=== PATIENT | male | born 1990 | race Caucasian/White ===

== ENCOUNTER 2019-01-20 12:10 | Outpatient (REF) | payer MEDICAID, SELFPAY ==
[2019-01-20 22:10] LABS: TSH (W/Ref FT4) 1.26 uIU/mL (0.358-3.74)
== END 2019-01-20 12:30 ==
LOC: NCHCN 12:10
PROVIDERS: PCP Family Medicine; Visit Provider Family Medicine
DX: E03.9 Hypothyroidism, unspecified (principal)
CPT/HCPCS: 84443

== ENCOUNTER 2020-03-20 09:54 | Outpatient (REF) | payer SELFPAY ==
[2020-03-20 21:00] LABS: TSH (W/Ref FT4) 1.54 uIU/mL (0.36-3.74)
== END 2020-03-20 10:14 ==
LOC: NCHCN 09:54
PROVIDERS: PCP Family Medicine; Visit Provider Family Medicine
DX: E03.9 Hypothyroidism, unspecified (principal)
CPT/HCPCS: 84443

== ENCOUNTER 2020-06-19 21:25 | Outpatient (REF) | payer BC, SELFPAY ==
[2020-06-21 12:23] LABS: COVID-19 RT-PCR Result NEGATIVE (Negative)
== END 2020-06-19 21:45 ==
LOC: NCHCN 21:25
PROVIDERS: PCP Family Medicine; Visit Provider Family Medicine
DX: Z20.828 Contact with and (suspected) exposure to other viral communicable diseases (principal)
CPT/HCPCS: U0003

== ENCOUNTER 2020-08-03 19:17 | Outpatient (REF) | payer BC, SELFPAY ==
[2020-08-03 21:13] LABS: Abs Immature Grans 0.02 10^3/uL (0.0-0.06); Absolute Basophil Count 0.03 10^3/uL (0.0-0.2); Absolute Eosinophil Count 0.04 10^3/uL (0.0-0.7); Absolute Lymphocyte Count 0.79 10^3/uL (1.2-3.4); Absolute Monocyte Count 0.68 10^3/uL (0.1-0.8); Absolute Neutrophil Count 3.49 10^3/uL (1.2-6.7); Basophils % 0.6; Eosinophils % 0.8; HCT 47.5 % (40.0-50.0); HGB 16.1 g/dL (13.5-17.5); Immature Grans % 0.4; Lymphocytes % 15.6; MCH 30.8 pg (27.0-33.0); MCHC 33.9 % (32.0-36.0); MCV 90.8 fL (80-95); MPV 11.7 fL (8.0-11.0); Monocytes % 13.5; Neutrophils % 69.1; Nucleated RBC 0 %; Platelet Count 186 10^3/uL (130-400); RBC 5.23 10^6/uL (4.36-5.78); RDW 12.5 % (11.8-14.1); RDW-SD 41.3 fL; WBC 5.05 10^3/uL (4.4-10.8)
[2020-08-03 21:51] LABS: ESR 4 mm/hr (0-15)
[2020-08-03 21:55] LABS: ALT 66 U/L (16-63); AST 25 U/L (15-37); Albumin 4.2 g/dL (3.4-5.0); Alkaline Phosphatase 78 U/L (46-116); Anion Gap 10.2 mmol/L (3-11); BUN 11 mg/dL (7-18); Bilirubin, Total 0.7 mg/dL (0.2-1.0); CO2 26.8 mmol/L (21.0-32.0); CREATININE 1.07 mg/dL (0.70-1.30); Calculated LDL 67 mg/dL (<100); Chloride 107 mmol/L (98-107); Cholesterol 125 mg/dL (<200); Glucose 129 mg/dL (74-106); HDL Cholesterol 36 mg/dL (40-60); Potassium 3.8 mmol/L (3.5-5.1); Sodium 144 mmol/L (136-145); Total Protein 7.1 g/dL (6.4-8.2); Triglyceride 112 mg/dL (<150)
[2020-08-03 22:11] LABS: Calcium 8.9 mg/dL (8.5-10.1)
[2020-08-07 12:06] LABS: Lyme Ab w Rflx to Lyme Confirm Negative (Negative)
[2020-08-07 15:53] LABS: Anaplasma phagocytophilum Negative (Negative); B. miyamotoi PCR Negative (Negative); Babesia divergens/MO-1 Negative (Negative); Babesia duncani Negative (Negative); Babesia microti Negative (Negative); Ehrlichia chaffeensis Negative (Negative); Ehrlichia ewingii/canis Negative (Negative); Ehrlichia muris eauclairensis Negative (Negative)
== END 2020-08-03 19:37 ==
LOC: NCHCN 19:17
PROVIDERS: PCP Family Medicine; Visit Provider Family Medicine
DX: R53.83 Other fatigue (principal); M25.50 Pain in unspecified joint; R19.7 Diarrhea, unspecified
CPT/HCPCS: 80053; 80061; 85652; 87798; 83735; 85025; 86618

== ENCOUNTER 2020-08-31 09:42 | Outpatient (CLI) | payer BC, SELFPAY ==
--- NOTE | 2020-08-31 09:15 | DI.RAD_ITS ---
EXAM: XR ELBOW LT COMPLETE CLINICAL HISTORY: s/p ORIF left elbow. TECHNIQUE: 2D digital imaging was performed. COMPARISON: CR LEFT FOREARM from 05/09/2017 CR LEFT HUMERUS from 05/09/2017 FINDINGS: BONES: There are sideplate and screws seen in the distal humerus. Two percutaneous pins are seen in the proximal ulna. The orthopedic hardware is intact. No fracture or dislocation is seen. JOINTS: The joint spaces are well maintained. No joint effusion is present. SOFT TISSUE: Normal. IMPRESSION: Stable postoperative changes. DATA REPOSITORY: RADIATION DOSE DELIVERED:
== END 2020-08-31 10:02 ==
PROVIDERS: PCP Family Medicine; Referring Provider Family Medicine; Visit Provider Physician Assistant
DX: M25.522 Pain in left elbow (principal); Z96.7 Presence of other bone and tendon implants; Z87.81 Personal history of (healed) traumatic fracture
CPT/HCPCS: 73080

== ENCOUNTER 2020-10-27 01:43 | Outpatient (CLI) | payer BC, SELFPAY ==
[2020-10-28 15:32] LABS: COVID-19 RT-PCR UVMMC Result Negative (Negative)
== END 2020-10-27 02:03 ==
PROVIDERS: PCP Family Medicine; Visit Provider Student in an Organized Health Care Education/Training Program
DX: Z11.52 Encounter for screening for COVID-19 (principal); Z01.818 Encounter for other preprocedural examination
CPT/HCPCS: U0003

== ENCOUNTER 2020-10-31 08:06 | Day surgery (SDC) | payer BC, SELFPAY ==
--- NOTE | 2020-10-26 09:15 | NUR.NOTE ---
Patient called for pre-op instructions and time. Patient stated he wasn't aware that he had to have a COVID test prior to his procedure, this RN informed him that in order to have his surgery he need to have to COVID test and quarantine per the guidelines. Pt. stated that he was never told he had to have a COVID test or quarantine, this RN asked if he received a folder from the office and if he reviewed the information within it, pt. stated well ,no. This RN stated all of that information would in in that folder (verified this with Ortho office). Verified with MD and anesthesia that pt. would have to be in Full quarantine after COVID test (stay home not to go work or store) until after his surgery. Patient educated on this information, Pt. stated understanding and that he will review information in given folder. Nursing Note:
[2020-10-31] VITALS (8 sets, daily range): BP systolic 83–113; BP diastolic 43–78; PULSE 65–95; RESP 11–17; TEMP 36.2–36.7; O2SAT 94–99
--- NOTE | 2020-10-31 07:59 | W.PM.DSUDISC ---
Documented by User: MARQUITA Smith 10/31/20 08:16 Discharge Plan Disposition Patient Disposition: HOME Condition: Good Discharge Details Reason For Visit: Hardware Removal Attending Provider: Justin Sumner Primary Care Provider: Inocencia Douglass Home Meds and New Rx's Prescriptions: New hydrocodone-acetaminophen 5-325 mg tablet 1 tab PO Q6H PRNQty: 5 RF: 0 Continued levothyroxine 75 MCG tablet 75 mcg PO DAILY Qty: 90 RF: 3 ibuprofen 600 MG tablet 600 mg PO Q6H PRN PRNQty: 30 RF: 0 acetaminophen [Tylenol] 325 MG tablet 650 mg PO Q6H PRN PRNQty: 30 RF: 0 fluoxetine 20 mg capsule 20 mg PO DAILY RF: 0 Discharge Instructions Additional Instructions: Activity: You should use the sling for comfort for the first 2 weeks. You may come out of the sling for gentle motion and hygiene. Gentle motion of the elbow, hand, wrist, and fingers is okay and encouraged after the first few days, but no repetitive activites nor heavy lifting. You may apply ice. Medications: - You should take Tylenol and Ibuprofen around the clock. - You have been prescribed Hydrocodone for breakthrough pain. Dressings: - The initial surgical dressing should stay in place for 3 days. It may then be removed and kept clean and dry. You should cover with a light gauze dressing. - You may shower after 3 days and get the wound wet. Follow-up: 10 days Referrals: Justin Sumner MD [ [facility] STAFF PHYSICIAN] - Equipment/Supplies: Splint Activity:: Activity as Tolerated Remove Dressings/Wound Care:: 72 hours Shower/Bathe:: 72 hours Diet:: As Tolerated Discharge Orders Discharge Orders: Discharge Order (Routine); Ordered 10/31/20 Ordered By: Sommer Chahal DS: Diagnosis Discharge Diagnosis (1) Painful orthopaedic hardware: Status: Acute Documented by User: Justin Sumner MD 10/31/20 11:08 Discharge Plan Disposition Patient Disposition: HOME Condition: Good Discharge Details Reason For Visit: Hardware Removal Attending Provider: Justin Sumner Primary Care Provider: Inocencia Douglass Home Meds and New Rx's Prescriptions: New hydrocodone-acetaminophen 5-325 mg tablet 1 tab PO Q6H PRNQty: 5 RF: 0 Continued levothyroxine 75 MCG tablet 75 mcg PO DAILY Qty: 90 RF: 3 ibuprofen 600 MG tablet 600 mg PO Q6H PRN PRNQty: 30 RF: 0 acetaminophen [Tylenol] 325 MG tablet 650 mg PO Q6H PRN PRNQty: 30 RF: 0 fluoxetine 20 mg capsule 20 mg PO DAILY RF: 0 Discharge Instructions Additional Instructions: Activity: You should use the sling for comfort for the first 2 weeks. You may come out of the sling for gentle motion and hygiene. Gentle motion of the elbow, hand, wrist, and fingers is okay and encouraged after the first few days, but no repetitive activites nor heavy lifting. You may apply ice. Medications: - You should take Tylenol and Ibuprofen around the clock. - You have been prescribed Hydrocodone for breakthrough pain. Dressings: - The initial surgical dressing should stay in place for 3 days. It may then be removed and kept clean and dry. You should cover with a light gauze dressing. - You may shower after 3 days and get the wound wet. Follow-up: 10 days Referrals: Justin Sumner MD [ [facility] STAFF PHYSICIAN] - Equipment/Supplies: Splint Activity:: Activity as Tolerated Remove Dressings/Wound Care:: 72 hours Shower/Bathe:: 72 hours Diet:: As Tolerated Discharge Orders Discharge Orders: Discharge Order (Routine); Ordered 10/31/20 Ordered By: Sommer Chahal
[2020-10-31] MEDS: Lactated Ringers 1,000 ML 80 ML IV (08:50)
--- NOTE | 2020-10-31 09:56 | W.PREOPHP ---
Date of service: 10/31/20 Time of Service: 09:57 Assessment and Plan Assessment and plan (1) Painful orthopaedic hardware: Status: Acute Assessment and plan: Miko is a 29-year-old who has previous hardware from a complex elbow fracture. My suspicion is that the hardware is causing some the pain that he has. However, there is a chance that it is not and is related to the overall trauma he experienced. However, removing the hardware is of little difficulty and therefore I recommend that we remove the hardware to remove this possible pain generator. I reviewed the risk of the procedure to include bleeding, infection, continued symptoms, pain, stiffness, damage to nerves and vessels, wound healing complications. Despite these risk, he elects to proceed. History of Present Illness History of Present Illness Chief Complaint: Painful Left Elbow Hardware Narrative: Miko is a 29-year-old who I saw previously in the office for continued left proximal forearm pain, mostly with rotation but also with some elbow flexion. He does not around the hardware of the left elbow. However, he is status post open reduction internal fixation of a complex distal humerus fracture using a chevron osteotomy of the proximal ulna. Through examination and discussion we felt that the hardware of the proximal ulna was causing pain and therefore desired to proceed with hardware removal of the left elbow. Review of Systems All systems reviewed & are unremarkable except as noted in HPI and below PFSH Medical History History of fracture of tibia LLE Hx of fracture of fibula LLE Surgical History History of skin graft x 3 RLE Hx of cholecystectomy Hx of elbow surgery L Social History Smoking/Tobacco Use Status: Never Smoking risk assessment performed?: Yes Alcohol Intake: current Alcohol Intake frequency: a few times a month Drug use: Never Substance use type: does not use Do you feel safe at home: Yes Meds Home Medications and Allergies Home Medications Medication Instructions Recorded Confirmed Type levothyroxine 75 mcg PO DAILY #90 tab-cap 09/20/14 10/31/20 History acetaminophen [Tylenol] 650 mg PO Q6H PRN PRN #30 tab 02/12/18 10/31/20 Rx ibuprofen 600 mg PO Q6H PRN PRN #30 tablet 02/12/18 10/31/20 Rx fluoxetine 20 mg PO DAILY 10/26/20 10/31/20 History hydrocodone-acetaminophen 1 tab PO Q6H PRN #5 tab 10/31/20 Rx Allergies Allergy/AdvReac Type Severity Reaction Status Date / Time cefaclor [From [facility]] Allergy Unknown Skin Rash Unverified 10/31/20 08:35 hydromorphone Allergy Itching Unverified 10/31/20 08:35 Exam Const General: cooperative, healthy appearing and comfortable Nutritional Appearance: average body habitus Orientation: alert, awake and oriented x3 Resp Effort & Inspection: normal respiratory effort Auscultation: clear to auscultation bilaterally Cardio Rate: tachycardic Rhythm: regular rhythm Results Last Vital Signs Temp 36.3 C L 10/31/20 08:15 Pulse 95 H 10/31/20 08:15 Resp 17 10/31/20 08:15 BP 113/78 10/31/20 08:15 Pulse Ox 97 10/31/20 08:15
[2020-10-31] MEDS: ceFAZolin 2 GM/50 ML BAG IVPB (09:59)
[2020-10-31] MEDS: Bupivacaine 0.5% Pres-Free 30 ML VIAL (10:32)
[2020-10-31] MEDS: EPINEPHrine 1 MG/ML AMP pres-free (10:34)
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
== END 2020-10-31 13:08 | disposition home or self-care (01) ==
LOC: SUR 08:07
PROVIDERS: PCP Family Medicine; Visit Provider Student in an Organized Health Care Education/Training Program
PROC: (CPT 20680; principal; 2020-10-31 10:15)
DX: T84.84XA Pain due to internal orthopedic prosthetic devices, implants and grafts, initial encounter (principal); M25.522 Pain in left elbow; M79.632 Pain in left forearm; K21.9 Gastro-esophageal reflux disease without esophagitis
CPT/HCPCS: 20680; J0171; J0690; J1885; J2250; J2405; J2704; L3650

== ENCOUNTER 2022-03-29 19:05 | Outpatient (REF) | payer BC, SELFPAY ==
[2022-03-29 14:59] LABS: ALT 30 U/L (16-63); AST 12 U/L (15-37); Albumin 4.4 g/dL (3.4-5.0); Alkaline Phosphatase 87 U/L (46-116); Anion Gap 11.7 mmol/L (3-11); BUN 16 mg/dL (7-18); Bilirubin, Total 0.5 mg/dL (0.2-1.0); CO2 25.3 mmol/L (21.0-32.0); Calculated LDL 88 mg/dL (<100); Chloride 105 mmol/L (98-107); Cholesterol 142 mg/dL (<200); Glucose 99 mg/dL (74-106); HDL Cholesterol 43 mg/dL (40-60); Sodium 142 mmol/L (136-145); TSH (W/Ref FT4) 1.36 uIU/mL (0.36-3.74); Total Protein 7.5 g/dL (6.4-8.2); Triglyceride 59 mg/dL (<150)
[2022-03-29 16:47] LABS: Hemoglobin A1C 5.2 % (<5.7)
== END 2022-03-29 19:06 | disposition home or self-care (01) ==
LOC: NCHCN 19:05
PROVIDERS: PCP Family Medicine; Visit Provider Family Medicine
DX: Z00.00 Encounter for general adult medical examination without abnormal findings (principal); E03.9 Hypothyroidism, unspecified; Z13.1 Encounter for screening for diabetes mellitus; Z13.220 Encounter for screening for lipoid disorders
CPT/HCPCS: 80053; 80061; 83036; 84443

== ENCOUNTER 2023-01-02 16:01 | Outpatient (REF) | payer BC, SELFPAY ==
[2023-01-02 14:19] LABS: HCT 45.8 % (40.0-50.0); HGB 15.4 g/dL (13.5-17.5); MCH 30.3 pg (27.0-33.0); MCHC 33.6 % (32.0-36.0); MCV 90 fL (80-95); MPV 10.5 fL (8.0-11.0); Platelet Count 203 10^3/uL (130-400); RBC 5.09 10^6/uL (4.36-5.78); RDW 12.6 % (11.8-14.1); RDW-SD 41.9 fL; WBC 4.82 10^3/uL (4.4-10.8)
[2023-01-02 14:46] LABS: Anion Gap 7.5 mmol/L (3-11); BUN 13 mg/dL (7-18); CO2 31.5 mmol/L (21.0-32.0); Calcium 9.2 mg/dL (8.5-10.1); Calculated LDL 77 mg/dL (<100); Chloride 106 mmol/L (98-107); Cholesterol 124 mg/dL (<200); Estimated GFR 103.19 (mL/min/1.73m2); Glucose 98 mg/dL (74-106); HDL Cholesterol 38 mg/dL (40-60); Potassium 4.4 mmol/L (3.5-5.1); Sodium 145 mmol/L (136-145); TSH 2.96 uIU/mL (0.36-3.74); Triglyceride 49 mg/dL (<150)
== END 2023-01-02 16:02 | disposition home or self-care (01) ==
LOC: NCHCN 16:01
PROVIDERS: PCP Family Medicine; Visit Provider Family Medicine
DX: F41.8 Other specified anxiety disorders (principal); E03.9 Hypothyroidism, unspecified; K21.9 Gastro-esophageal reflux disease without esophagitis; E66.3 Overweight
CPT/HCPCS: 80048; 80061; 85027; 84443

== ENCOUNTER 2024-01-05 16:23 | Outpatient (REF) | payer BC, SELFPAY ==
[2024-01-05 21:33] LABS: TSH 1.44 uIU/Ml (0.36-3.74)
== END 2024-01-05 16:24 | disposition home or self-care (01) ==
LOC: NCHCN 16:23
PROVIDERS: PCP Family Medicine; Visit Provider Family Medicine
DX: E03.9 Hypothyroidism, unspecified (principal)
CPT/HCPCS: 84443

== ENCOUNTER 2024-01-22 16:53 | Outpatient (REF) | payer BC, SELFPAY ==
[2024-02-01 15:47] LABS: Testosterone, Free 12.3 ng/dL (4.85-19.0); Testosterone, Total 320 ng/dL (240-950)
== END 2024-01-22 16:54 | disposition home or self-care (01) ==
LOC: NCHCN 16:53
PROVIDERS: PCP Family Medicine; Visit Provider Family Medicine
DX: M62.81 Muscle weakness (generalized) (principal)
CPT/HCPCS: 84402; 84403

== ENCOUNTER 2025-02-01 13:11 | Outpatient (REF) | payer BC, SELFPAY ==
[2025-02-01 14:55] LABS: ALT 44 U/L (16-63); AST 23 U/L (15-37); Albumin 4.5 g/dL (3.4-5.0); Alkaline Phosphatase 82 U/L (46-116); Anion Gap 5.7 mmol/L (3-11); BUN 20 mg/dL (7-18); Bilirubin, Total 0.6 mg/dL (0.2-1.0); CO2 30.3 mmol/L (21.0-32.0); Calcium 9.7 mg/dL (8.5-10.1); Calculated LDL 134 mg/dL (<100); Chloride 109 mmol/L (98-107); Cholesterol 215 mg/dL (<200); Estimated GFR 101.92 (mL/min/1.73m2); Glucose 99 mg/dL (74-106); HDL Cholesterol 71 mg/dL (>or=40); Potassium 5.1 mmol/L (3.5-5.1); Sodium 145 mmol/L (136-145); Total Protein 7.4 g/dL (6.4-8.2); Triglyceride 51 mg/dL (<150)
[2025-02-08 17:55] LABS: Testosterone, Free 20.3 ng/dL (4.85-19.0); Testosterone, Total 671 ng/dL (240-950)
== END 2025-02-01 13:12 | disposition home or self-care (01) ==
LOC: NCHCN 13:11
PROVIDERS: PCP Family Medicine; Visit Provider Family Medicine
DX: R03.0 Elevated blood-pressure reading, without diagnosis of hypertension (principal); N50.812 Left testicular pain
CPT/HCPCS: 80053; 80061; 84402; 84403

== ENCOUNTER 2025-06-03 18:16 | Outpatient (REF) | payer BC, SELFPAY ==
[2025-06-15 19:29] LABS: Testosterone, Free 86.6 pg/mL (35.0-155.0)
== END 2025-06-03 18:17 | disposition home or self-care (01) ==
LOC: NCHCN 18:16
PROVIDERS: PCP Family Medicine; Visit Provider Family Medicine
DX: N52.2 Drug-induced erectile dysfunction (principal)
CPT/HCPCS: 84402; 84403